=== PATIENT | male | born 1955 | race Caucasian/White ===

== ENCOUNTER 2025-08-22 12:22 | Outpatient (CLI) | payer MEDICARE, OTHER, SELFPAY ==
--- NOTE | 2025-08-22 12:48 | DI.RAD_ITS ---
Exam(s) XR CHEST 2V PA LATERAL EXAM: XR CHEST 2V PA LATERAL CLINICAL HISTORY: eval pathology, R05.9 Cough TECHNIQUE: 2D digital imaging was performed. Two views. COMPARISON: No exams were available for comparison FINDINGS: HEART: Normal size. Aorta: Mildly tortuous. PULMONARY VASCULATURE: Normal. MEDIASTINUM: Unremarkable. LUNGS: Questionable linear densities in the right middle lobe which could represent atelectasis. Developing pneumonia not entirely excluded. Remainder of the lung morejon appear clear. PLEURAL SPACE: No pleural effusion or pneumothorax. BONE:There are degenerative changes in the thoracic spine. No compression fractures. SOFT TISSUES: Unremarkable. IMPRESSION: Question of mild right middle lobe atelectasis versus developing infiltrate. The preliminary [facility] report was reviewed. DATA REPOSITORY: RADIATION DOSE DELIVERED:
--- NOTE | 2025-08-22 14:08 | DI.[facility]_ITS ---
PROCEDURE INFORMATION: Exam: XR Chest Exam date and time: 08/22/2025 12:50 PM Age: 70 years old Clinical indication: Cough; Additional info: Eval pathology, cough TECHNIQUE: Imaging protocol: Radiologic exam of the chest. Views: 2 views. COMPARISON: No relevant prior studies available. FINDINGS: Lungs: Right middle lobe atelectasis. Pleural spaces: Unremarkable. No pleural effusion. No pneumothorax. Heart/Mediastinum: Unremarkable. No cardiomegaly. Bones/joints: Multilevel degenerative changes of the spine. IMPRESSION: Right middle lobe atelectasis. Dictated and Authenticated by: Itzel Yu MD. Orderin Breann Ugarte MD
== END 2025-08-22 12:42 ==
PROVIDERS: Visit Provider Nurse Practitioner Family
DX: R05.9 Cough, unspecified (principal)
CPT/HCPCS: 71046